=== PATIENT | male | born 1985 | race Caucasian/White ===

== ENCOUNTER → 2021-03-16 18:31 | Outpatient (CLI) | payer OTHER, SELFPAY ==
--- NOTE | 2021-03-16 18:35 | DI.MRI.S_ITS ---
PROCEDURE: MR LUMBAR SPINE WO CON INDICATIONS: DORSALGIA UNSPECIFIED TECHNIQUE: Noncontrast sagittal T1 spin echo and T2 fast echo, sagittal STIR, axial T1 and T2 fast spin echo through the lumbar spine. In cases with scoliosis, additional coronal T2 fast spin echo may be performed. COMPARISON: None. FINDINGS: Image quality: Excellent. Alignment and Curvature: There is normal bony alignment. Bone Marrow: Mild reactive endplate changes noted adjacent to the L4-L5 disc. No acute vertebral body compression fractures. Spinal Cord: Conus medullaris terminates at the L1 level. Visualized cord demonstrates normal signal and size. Paraspinous Soft Tissues: No paravertebral masses. T12-L1: Loss of disc signal. Minimal, diffuse disc bulge. Small right central disc protrusion. Mild narrowing of the central canal. No neural foraminal narrowing. No neural compression. L1-L2: Slight loss of disc signal. Minimal, diffuse disc bulge. No central stenosis. No neural foraminal narrowing. No neural compression. L2-L3: Slight loss of disc signal. Minimal, diffuse disc bulge. No central stenosis. No neural foraminal narrowing. No neural compression L3-L4: Slight loss of disc signal. Minimal, diffuse disc bulge. No central stenosis. No neural foraminal narrowing. No neural compression. L4-L5: Loss of disc signal. Mild, diffuse disc bulge. Moderate-sized central disc protrusion. Mild bilateral facet hypertrophy. Mild narrowing of the central canal. Moderate bilateral neural foraminal narrowing. No neural compression. L5-S1: Slight loss of disc signal. Minimal, diffuse disc bulge. Mild bilateral facet hypertrophy. L5 pars interarticularis defects. No central stenosis. Severe right neural foraminal narrowing with compression of the exiting right L5 nerve root. Left neural foramen is fully patent. IMPRESSION: 1. Multilevel degenerative disc disease. 2. Multilevel facet arthropathy. 3. No severe central canal narrowing. 4. Severe right L5-S1 neural foraminal narrowing with compression of the exiting right L5 nerve root. 5. L5 pars interarticularis defects. Dictated by: Sofi Serna MD, PhD on 03/17/2021 at 7:00 Approved by: Sofi Serna MD, PhD on 03/17/2021 at 18:01
== END ==
DX: M54.9 Dorsalgia, unspecified (principal); M51.36 Other intervertebral disc degeneration, lumbar region; M47.816 Spondylosis without myelopathy or radiculopathy, lumbar region; M47.817 Spondylosis without myelopathy or radiculopathy, lumbosacral region; M48.07 Spinal stenosis, lumbosacral region
CPT/HCPCS: 72148

== ENCOUNTER 2024-03-08 09:17 | Emergency (ER) | payer OTHER, SELFPAY ==
[2024-03-08 09:20] VITALS: BP 127/77; PULSE 62; RESP 15; TEMP 36.1; O2SAT 99; BMI 38.1
--- NOTE | 2024-03-08 09:37 | ED.BACK ---
HPI - Back Pain/Injury General Chief Complaint: Back Pain/Injury Stated Complaint: Lower back pain Time Seen by Provider: 03/08/24 09:33 Source: patient Mode of arrival: Ambulatory History of Present Illness HPI Narrative: Patient is a 39-year-old male. Has a history of lower back discomfort. Several weeks ago had a steroid injection. He states yesterday he was bending over picking something up and had immediate pain in his lower back. No fevers. No problems urinating or change in bowel habits. No skin rashes. Patient did try some naproxen at home prior to arrival without much improvement. Related Data Previous Rx's Medication Instructions Recorded cyclobenzaprine 10 mg tablet 10 mg PO TID PRN muscle spasm #21 03/08/24 tabs hydrocodone 5 mg-acetaminophen 325 1 tab PO Q4-6H PRN pain #10 tabs 03/08/24 mg tablet methylprednisolone 4 mg tablets in See Rx Instructions PO .COMPLEX 03/08/24 a dose pack (Medrol ([place])) #21 ea Allergies Allergy/AdvReac Type Severity Reaction Status Date / Time Sulfa (Sulfonamide Allergy Verified 03/08/24 09:20 Antibiotics) Review of Systems Constitutional Constitutional: Reports system reviewed and no additional complaints, except as documented Genitourinary Genitourinary: Reports system reviewed and no additional complaints, except as documented Musculoskeletal Musculoskeletal: Reports system reviewed and no additional complaints, except as documented Integumentary/Breasts Skin/Breast: Reports system reviewed and no additional complaints, except as documented Patient History Social History Smoking Status: Unknown if ever smoked Smoking Status: Unknown if ever smoked alcohol intake frequency: holidays/special occasions only Substance Use Type: does not use Exam Initial Vital Signs Initial Vital Signs: Vital Signs Temperature 97.0 F L 03/08/24 09:20 Pulse Rate 62 03/08/24 09:20 Respiratory Rate 15 03/08/24 09:20 Blood Pressure 127/77 03/08/24 09:20 Pulse Oximetry 99 03/08/24 09:20 Oxygen Delivery Method Room Air 03/08/24 09:20 Const General: cooperative and No ill appearing Back/Spine/Pelvis Thoracic/Lumbar Spine: No paraspinal tenderness, No thoracic spinal tenderness and No lumbar spinal tenderness Neuro General: patient alert, patient awake and moves all extremities Extrem General: normal to inspection and capillary refill normal Course Orders Ordered: Discontinued Medications Hydromorphone HCl (Hydromorphone 1 Mg Inj) 1 mg IM NOW ONE Stop: 03/08/24 09:39 Ketorolac Tromethamine (Ketorolac 30 Mg/Ml Vial) 30 mg IM NOW ONE Stop: 03/08/24 09:39 Vital Signs Vital signs: Vital Signs - 8 hr 03/08/24 09:20 Temperature 97.0 F L Pulse Rate 62 Respiratory Rate 15 Blood Pressure 127/77 Pulse Oximetry 99 Oxygen Delivery Method Room Air MDM - Back Pain/Injury MDM Narrative Medical decision making narrative: Low suspicion for acute surgical issue such as cauda equina. I do suspect muscular in origin. No indication for radiologic studies. Will treat conservatively for now. Will discharge home with prescriptions and instructions to contact his medical department for follow-up. He was given return precautions. Discharge Plan Departure Patient Disposition: Home Clinical Impression: Strain of lumbar region Instructions: DI for Low Back Pain Activity Restrictions/Additional Instructions: Use the the medications that you are prescribed today as directed. Also recommend that you follow-up with your medical department. You can also continue with other conservative measures such as heat/ice/massage and light stretching. Return to the emergency department for new symptoms. Prescriptions: New cyclobenzaprine 10 mg tablet 10 mg PO TID PRN (Reason: muscle spasm) Qty: 21 0RF hydrocodone-acetaminophen 5-325 mg tablet 1 tab PO Q4-6H PRN (Reason: pain) Qty: 10 0RF methylprednisolone [Medrol ([place])] 4 mg tablets,dose pack See Rx Instructions .ROUTE .COMPLEX Qty: 21 0RF Rx Instructions: orally per package directions Referrals: ProviderKristina [Primary Care Provider] - Stand Alone Forms: Patient Portal/API
[2024-03-08] MEDS: HYDROMORPHONE 1 MG INJ IM (09:45)
[2024-03-08] MEDS: KETOROLAC 30 MG/ML VIAL IM (09:45)
[2024-03-08 10:11] VITALS: BP 128/79; PULSE 63; RESP 16; O2SAT 100
== END 2024-03-08 10:11 | disposition home or self-care (01) ==
PROVIDERS: Emergency Provider Emergency Medicine
DX: S39.012A Strain of muscle, fascia and tendon of lower back, initial encounter (principal); X50.1XXA Overexertion from prolonged static or awkward postures, initial encounter; Y93.89 Activity, other specified
CPT/HCPCS: 96372; 99283; J1170; J1885